=== PATIENT | male | born 1980 | race Caucasian/White ===

== ENCOUNTER 2019-09-07 08:45 | Emergency (ER) | payer BC ==
[~2019-09-07] VITALS: Ht 180.3 cm; Wt 83.9 kg
[2019-09-07] MEDS ORDERED: NORCO 7.5-3251 EACH PO (09:32)
== END 2019-09-07 10:28 | disposition home or self-care (01) ==
LOC: ED 08:45
PROC: 2W3AX1Z Immobilization of Right Upper Arm using Splint (ICD-10-PCS; principal; 2019-09-07)
DX: S52.124A Nondisplaced fracture of head of right radius, initial encounter for closed fracture (principal); Z88.2 Allergy status to sulfonamides; W01.0XXA Fall on same level from slipping, tripping and stumbling without subsequent striking against object, initial encounter
CPT/HCPCS: 29105; 73080; 99283-25